=== PATIENT | female | born 1930 | race Caucasian/White ===

== ENCOUNTER → 2017-08-27 | Outpatient (CLI) | payer OTHER, BC ==
[~2017-08-27] MED LIST: ASPIRIN EC81 M1 PO; CALCIUM PO; LEVOTHROID50 MCG PO; LIPITOR10 MG PO; MULTIVITAMINS PO; PROBIOTIC1 EACH PO; ZANTAC 7575 MG PO
== END ==
LOC: RAD 08:36
DX: Z12.31 Encounter for screening mammogram for malignant neoplasm of breast (principal)

== ENCOUNTER 2018-08-01 09:40 | Emergency (ER) | payer OTHER, BC ==
[~2018-08-01] VITALS: Ht 165.1 cm; Wt 61.2 kg
[2018-08-01] MEDS ORDERED: NORCO 5-325 TA1 EACH PO (11:06)
== END 2018-08-01 11:48 | disposition home or self-care (01) ==
LOC: ER 09:40
DX: S42.291A Other displaced fracture of upper end of right humerus, initial encounter for closed fracture (principal); M81.0 Age-related osteoporosis without current pathological fracture; Z90.49 Acquired absence of other specified parts of digestive tract; Z90.89 Acquired absence of other organs; Z90.710 Acquired absence of both cervix and uterus; W01.0XXA Fall on same level from slipping, tripping and stumbling without subsequent striking against object, initial encounter; Y92.009 Unspecified place in unspecified non-institutional (private) residence as the place of occurrence of the external cause; Y93.89 Activity, other specified; Y99.8 Other external cause status

== ENCOUNTER → 2018-10-19 | Outpatient (CLI) | payer OTHER, BC ==
[~2018-10-19] MED LIST changes: +NORCO 5-325 TA1 EACH PO
== END ==
LOC: RAD 12:02
DX: Z12.31 Encounter for screening mammogram for malignant neoplasm of breast (principal)

== ENCOUNTER → 2019-11-04 | Outpatient (CLI) | payer OTHER, BC | LOC: RAD 14:47 | DX: Z12.31 Encounter for screening mammogram for malignant neoplasm of breast (principal) ==

== ENCOUNTER → 2019-11-14 | Outpatient (CLI) | payer OTHER, BC | LOC: ULTRA 11-10 15:24 | DX: N63.10 Unspecified lump in the right breast, unspecified quadrant (principal) ==

== ENCOUNTER 2020-05-29 12:25 | Emergency (ER) | payer OTHER, BC ==
[~2020-05-29] VITALS: Ht 167.6 cm; Wt 54.4 kg
[2020-05-29] MEDS ORDERED: LORAZEPAM 0.50.5 MG PO (12:53)
[2020-05-29 13:15] LABS: ABSOLUTE NEUTROPHILS 5.3 thou/uL (1.4-8.2); BASOPHILS 0.5 % (0.0-2.0); EOSINOPHILS 0.6 % (0.0-3.0); HEMATOCRIT 41.5 % (37.0-47.0); HEMOGLOBIN 13.8 gm/dL (12.0-15.0); LYMPHOCYTES 18.4 % (24.0-44.0); MCH 31.6 pg (26.0-34.0); MCHC 33.1 g/dL (28.0-37.0); MCV 95.5 fL (80.0-100.0); POLYS 73.5 % (36.0-66.0); RBC 4.35 mil/uL (4.20-5.00); RDW 14.1 % (10.5-14.5); WBC 7.9 thou/uL (4.0-11.0)
[2020-05-29 13:25] LABS: INR 1.2
[2020-05-29 13:27] LABS: ANION GAP 8 mmol/L (7-16); BUN 16 mg/dL (7-18); CALCIUM 9.6 mg/dL (8.5-10.1); CHLORIDE 102 mmol/L (98-107); CO2 28 mmol/L (21-32); CREATININE 0.8 mg/dL (0.6-1.0); GLUCOSE 92 mg/dL (74-106); POTASSIUM 4.4 mmol/L (3.5-5.1); SODIUM 138 mmol/L (136-145)
[2020-05-29 13:36] LABS: ALBUMIN 3.6 g/dL (3.4-5.0); SGOT 22 U/L (15-37); SGPT 17 U/L (30-65); TOTAL BILIRUBIN 0.3 mg/dL (0.2-1.0); TOTAL PROTEIN 7.6 g/dL (6.4-8.2); TROPONIN-I <0.06 ng/mL (<0.06)
[2020-05-29 13:57] LABS: PLATELET COUNT 167 thou/uL (150-400); PLATELET ESTIMATE NORMAL
[2020-05-29 14:00] VITALS: BP 156/66
--- NOTE | 2020-05-29 16:40 | EKG ---
[facility] [place] [address] ELECTROCARDIOGRAM REPORT Name: DEVAN LEVINE Room #: REG [facility]#: [id number] Admission: 05/29/20 Attend Phys: Discharge: Date of : 34 Report #: [id number] THIS REPORT FOR: cc: Julio Rondon MD, Rene P. MD Lundgren,Amilcar Robertson MD [facility] ~ THIS REPORT FOR: //name// 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[id number] Requested By: Robbi Mcamhon Order Number: [id number] MD: Amilcar Randolph Measurements Intervals [place] Rate: 73 P: 67 MT: 204 QRS: 78 QRSD: 100 T: 12 QT: 401 QTc: 442 Interpretive Statements Sinus rhythm with first-degree AV block Otherwise normal tracing No previous ECG available for comparison Electronically Signed On 05-29-2020 16:40:21 CDT by Amilcar Randolph [email or web address] <ELECTRONICALLY SIGNED> By: Amilcar Randolph MD, [facility] 05/29/20 1640 29 29 Amilcar Randolph MD, [facility] /EPI
== END 2020-05-29 14:27 | disposition home or self-care (01) ==
LOC: ER 12:25
PROVIDERS: Emergency Medicine
DX: G45.9 Transient cerebral ischemic attack, unspecified (principal); F03.90 Unspecified dementia, unspecified severity, without behavioral disturbance, psychotic disturbance, mood disturbance, and anxiety; Z90.49 Acquired absence of other specified parts of digestive tract; Z90.89 Acquired absence of other organs; Z90.710 Acquired absence of both cervix and uterus; Z79.899 Other long term (current) drug therapy

== ENCOUNTER → 2020-06-08 | Outpatient (CLI) | payer OTHER, BC ==
[~2020-06-08] MED LIST changes: +LORAZEPAM 0.50.5 MG PO
== END ==
LOC: RAD 10:42
PROVIDERS: ATTEND Family Medicine
DX: I65.23 Occlusion and stenosis of bilateral carotid arteries (principal)

== ENCOUNTER 2020-08-10 10:17 | Inpatient (IN) | payer OTHER, BC ==
[~2020-08-10] VITALS: Ht 167.6 cm; Wt 62.6 kg
[2020-08-10 10:18] VITALS: BP 116/40
[2020-08-10 15:01] LABS: URINE BILIRUBIN NEGATIVE (Negative); URINE BLOOD NEGATIVE (Negative); URINE CLARITY SL CLOUDY; URINE COLOR YELLOW; URINE GLUCOSE-RANDOM* NEGATIVE (Negative); URINE KETONES 1+ (Negative); URINE LEUKOCYTES-REFLEX NEGATIVE (Negative); URINE NITRITE-REFLEX NEGATIVE (Negative); URINE PROTEIN (DIPSTICK) NEGATIVE (Negative); URINE SPECIFIC GRAVITY 1.015 (1.005-1.035); URINE UROBILINOGEN 0.2 E.U./dl (0.2-1.0)
[2020-08-10 15:52] LABS: ABSOLUTE NEUTROPHILS 7.1 thou/uL (1.4-8.2); BASOPHILS 0.2 % (0.0-2.0); EOSINOPHILS 0.1 % (0.0-3.0); HEMATOCRIT 38.5 % (37.0-47.0); HEMOGLOBIN 12.7 gm/dL (12.0-15.0); LYMPHOCYTES 9.9 % (24.0-44.0); MCH 31.3 pg (26.0-34.0); MCV 94.8 fL (80.0-100.0); MONOCYTES 6.5 % (1.0-8.0); PLATELET COUNT 161 thou/uL (150-400); POLYS 83.3 % (36.0-66.0); RBC 4.06 mil/uL (4.20-5.00); RDW 13.7 % (10.5-14.5); WBC 8.5 thou/uL (4.0-11.0)
[2020-08-10 15:53] VITALS: BP 124/46
[2020-08-10 16:04] LABS: CALCIUM 8.9 mg/dL (8.5-10.1); CREATININE 0.8 mg/dL (0.6-1.0); POTASSIUM 3.6 mmol/L (3.5-5.1)
[2020-08-10 16:12] VITALS: BP 150/74
[2020-08-10] MEDS ORDERED: SERTRALINE HCL100 MG PO (16:18)
--- NOTE | 2020-08-10 19:06 | NUR ---
Admitted pt. to floor. Pt. does not complain of pain at this time. Vitals stable. Fall precautions in places.
[2020-08-10 20:16] VITALS: BP 133/65
[2020-08-11 04:57] VITALS: BP 162/80
--- NOTE | 2020-08-11 05:17 | NUR ---
ASSUMED PT'S CARE THIS PM SHIFT. PT ALERT AND ORIENTED X4. DID SHOW SOME CONFUSION EARLY IN THE SHIFT. CALLING FOR IN HER ROOM. REORIENTATION PROVIDED NEEDED. PT VOIDED VIA BEDPAN. NO BM NOTED THIS SHIFT. PRN PAIN MED GIVEN THIS SHIFT. FALL PRECAUTIONS IN PLACE. CALL LIGHT WITHIN REACH. HOURLY ROUNDINGS MADE. WILL CONTINUE TO MONITOR.
[2020-08-11 07:50] VITALS: BP 128/62
[2020-08-11 16:30] VITALS: BP 124/71
--- NOTE | 2020-08-11 18:18 | NUR ---
PT ASSESSED AT START OF SHIFT. PT NOT HAVING MUCH PAIN EXCEPT WHEN TRANSFERRING IN AND OUT OF BED. UP TO CHAIR W/ THERAPY FOR SEVERAL HOURS. USING BSC W/ MOD ASSIST. IV FLUIDS INFUSING. EATING AND VOIDING WELL. MODERATE BM THIS AM.
[2020-08-11 19:08] VITALS: BP 139/69
--- NOTE | 2020-08-12 01:51 | NUR ---
ALERT AND ORIENTED WITH SOME FORGETFULNESS.PT GETS UP TO THE BSC, REQUIRES CLOSE ASSIST AND ALOT OF TIME TO MOVE AROUND. PT RATES PAIN AT ABOUT 1/10 WITH MOVEMENT. ONCE SETTLED IN BED, PT DENIES PAIN, OFFERED PAIN MEDS BUT SHE REFUSES. DENIES ANY SOA/NAUSEA/VOMITING. SHE IS PASSING GAS. SHE HAD SOME SMALL BM. VOIDING OKAY.FALL PREC IN PLACE. CALLS WITH NEEDS. NO FURTHER CONCERNS.
[2020-08-12 03:05] VITALS: BP 138/76
[2020-08-12 07:46] VITALS: BP 140/76
[2020-08-12 15:48] VITALS: BP 138/70
--- NOTE | 2020-08-12 16:39 | NUR ---
PT ASSESSED AT START OF SHIFT. PT STATES HE'S FEELING BETTER. WOUND BED CLEAN AND PINK. DAIKEN'S WET TO DRY DSNG CHANGE. MOD SS DRAINAGE. UP TO THE BR ONLY. EATING AND DRINKING WELL. PLANNING ON DC TOMORROW.
[2020-08-12 22:14] VITALS: BP 145/76
[2020-08-13 00:05] VITALS: BP 162/75
--- NOTE | 2020-08-13 04:52 | NUR ---
PT AOX4 WITH INTERMITTENT FORGETFULNESS. PT DENIES PAIN, NOTED TO HAVE INCREASED PAIN WITH MOVEMENT AND AMBULATION. PT REPORTS PAIN 'SORE' WITH MOVEMENT AND AMBULATION. PT REFUSING PAIN MEDS. PT HAS PRN PO TRAMADOL QHS AND PRN IV MORPHINE Q4HR AVAILABLE. PT DENIES SOB WHILE ON ROOM AIR. PT AMBULATING WITH SHUFFLING GAIT, GAIT BELT, WALKER, AND X1 ASSIST TO BEDSIDE COMMODE. BEDPAN USE ENCOURAGED FOR REMAINDER OF THE NIGHT. PT TOLERATING PO INTAKE OF FLUIDS AND REGULAR DIET WITHOUT ISSUE. FREQUENT REPOSITIONING ENCOURAGED, PT REFUSING REPOSITIONING ASSISTANCE DUE TO REPORTS OF COMFORT. PT ENCOURAGED TO NOTIFY STAFF FOR ALL NEEDS, CALL LIGHT WITHIN REACH, BED ALARM ON, BED IN LOWEST POSITION, FREQUENT MONITORING WILL CONTINUE.
[2020-08-13 07:05] VITALS: BP 149/73
--- NOTE | 2020-08-13 07:40 | NUR ---
ASUMMED CARE OF PATIENT. PT RESTING IN BED NO PAIN OR RESP DISTRESS AT THIS TIME, WILL FOLLOW PCO.
--- NOTE | 2020-08-13 09:31 | NUR ---
pt dtr, jing francisco contacted cm to inform that she is pt's dpoa, and copy should be on file. jing reports, pt has "some dementia and it is not always immediately apparent. pt resides at [facility]. jing stated she spk w/[facility] re; skilled, as she beleives pt will need skilled. jing number is [phone], "asked to be put to through my classroom." the best time to call is btwn [phone]. cm can also text jing at [phone]. pt goes by "cam."
[2020-08-13] MEDS ORDERED: PEPCID20 MG PO (11:28)
[2020-08-13] MEDS ORDERED: TYLENOL EXTRA500 MG PO (11:28)
--- NOTE | 2020-08-13 14:21 | NUR ---
PATIENT D/CD AT THIS TIME LEFT W/C VAN PT W/O PAIN OR RESP DISTRESS. ALL BELONGINGS PACKED AND SENT WITH PATIENT. IV ACSESS DCD. REPORT CALLED TO [facility] SKILLED [facility]IT SPOKE WITH HYACINTH RAMIREZ LPN GAVE HER REPORT.
--- NOTE | 2020-08-13 14:47 | NUR ---
chan sent updated clinicals to [facility] for skill. chan spk w/pt's dtr, jing and updated her pt will d/c back to [facility] today, w/transportation sched for 1400. pt nurse given number to call report. us copied chart. cm notified pt of plan and transportation time.
== END 2020-08-13 14:26 | DRG 536 ==
LOC: ER 10:17 → 4S 13:15 → EROBS 13:15 → 4S 15:54
PROVIDERS: Emergency Medicine; ADMIT Internal Medicine; ATTEND Internal Medicine
DX: S32.592A Other specified fracture of left pubis, initial encounter for closed fracture (principal); E03.9 Hypothyroidism, unspecified; M81.0 Age-related osteoporosis without current pathological fracture; F03.90 Unspecified dementia, unspecified severity, without behavioral disturbance, psychotic disturbance, mood disturbance, and anxiety; F32.9 Major depressive disorder, single episode, unspecified; F41.9 Anxiety disorder, unspecified; W01.0XXA Fall on same level from slipping, tripping and stumbling without subsequent striking against object, initial encounter; Z20.828 Contact with and (suspected) exposure to other viral communicable diseases; Z90.49 Acquired absence of other specified parts of digestive tract; Z90.710 Acquired absence of both cervix and uterus; Z79.899 Other long term (current) drug therapy; Y93.89 Activity, other specified; Y92.89 Other specified places as the place of occurrence of the external cause; Y99.8 Other external cause status
CPT/HCPCS: 10195